=== PATIENT | female | born 2000 | race Caucasian/White ===

== ENCOUNTER → 2024-06-04 14:22 | Outpatient (REF) | payer BC, SELFPAY | LOC: WDC 14:22 | PROVIDERS: ATTENDING PHYSICIAN Family Medicine | DX: R92.8 Other abnormal and inconclusive findings on diagnostic imaging of breast (principal) | CPT/HCPCS: 76642 ==

== ENCOUNTER 2024-09-25 14:11 | Emergency (ER) | payer BC, SELFPAY ==
[2024-09-25 14:17] VITALS: BP 127/81
--- NOTE | 2024-09-25 14:40 | ED.GENMED ---
History of Present Illness
General
Chief Complaint: Musculo-Skeletal Complaint
Source: patient
Time Seen by Provider: 09/25/24 14:31
History of Present Illness
History of Present Illness:
23-year-old female with no significant past medical history presenting to the emergency department for evaluation after injuring her left ankle while playing basketball stating that a player fell into her left ankle causing her ankle to invert now
with pain and swelling along the lateral aspect. Patient notes previous ankle sprains in the past but no previous surgeries. No other injuries sustained.
Past History
Past History
ED Past Medical History: None
ED Past Surgical History: None
Social History
Tobacco: Non-smoker
Alcohol: Occasional
Drug: None
Personal: Single
Living: with roommate
Employment: Student
Review of Systems
Review of Systems
All Other Systems: ROS reviewed and negative except as documented in HPI and ROS
Phy Exam
Physical Exam
Physical Exam:
GENERAL: Alert , in no apparent distress
EYE: conjunctiva clear
Head: Normocephalic atraumatic
NECK: Supple,
ENT: mmm.
LUNGS: no acute respiratory distress
NEUROLOGICAL: Alert and oriented
SKIN: Warm and dry, skin intact.
MUSCULOSKELETAL: Left lower extremity: Moderate soft tissue swelling around the lateral malleolus and just distal to this with tenderness in this area. Remainder of extremity is without any focal tenderness to palpation. No tenderness at the base
of metatarsal or proximal tib-fib region. Easily palpable pedal and tibial pulses. Cap refill less than 2 seconds and sensation is grossly intact to light touch.
PSYCH: Normal and appropriate interaction.
Scores
Heart Failure Risk
Heart Failure Risk Score: Not Applicable
Heart Score for Chest Pain Patients
STEMI patient?: Not applicable
Withdrawal Assessment of Alcohol
Withdrawal Assessment Completed?: Not applicable
Course
Orders/Labs/Results
Orders:
Orders
09/25/24 14:21
CR Ankle - Left Min 3 Views Urgent
Comment:
Reason For Exam: rolled ankle
09/25/24 14:28
CR Foot - Left Min 3 Views Urgent
Comment:
Reason For Exam: pain, injury
09/25/24 14:39
Air Splint Left-Treatment ONCE
Crutches-Treatment ONCE
Vital Signs
Initial and Last Documented VS:
Initial Vital Signs
Temp Pulse Resp BP Pulse Ox
98.4 F 76 16 127/81 100
09/25/24 14:17 09/25/24 14:17 09/25/24 14:17 09/25/24 14:17 09/25/24 14:17
Last Documented Vital Signs
Temp Pulse Resp BP Pulse Ox
98.4 F 76 16 127/81 100
09/25/24 14:17 09/25/24 14:17 09/25/24 14:17 09/25/24 14:17 09/25/24 14:17
MDM/Problems Addressed
Differential Diagnosis Includes:
Sprain, fracture, contusion
MDM/Problems Addressed:
23-year-old female presenting to the ER for evaluation of left ankle pain following an injury while playing basketball. X-rays ordered from triage which do not show any fracture. Suspect sprain is most likely diagnosis. NSAIDs/Tylenol as needed
for pain, RICE recommendations discussed. Crutches and air splint provided. 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
*Radiology
Radiology exam reviewed: preliminary read by ED provider (No acute fracture)
*Pulse Oximetry
Patient hypoxic: no
*Critical Care Note
Total Time (30-74mins, 75-104mins- exclusive of procedures): Not Applicable
ED Attending Note
-
Portions of this chart may have been created with voice recognition software.� Occasional wrong word or��sound alike� substitutions may have occurred due to the inherent limitations of voice recognition software.
Discharge Plan
Departure
Patient Disposition: Home (Routine Discharge)
Date of Disposition: 09/25/24
Time of Disposition: 14:42
Patient with high blood pressure during this ER visit?: No
Discharge Problem:
Left ankle sprain
Instructions: Sprain (DC)
Referrals:
Louie Bishop MD [Active] - (Ortho)
Stand Alone Forms: Back to School
Interventions
Interventions:
*Risk Screen - Suicide Last Done: 09/25/24 14:17
*General Assessment Last Done: 09/25/24 14:17
*Neglect/Abuse Screening Last Done: 09/25/24 14:17
*ED COVID-19 Vaccine History Last Done: 09/25/24 14:17
Discharge Date and Time
Print Language: ARMENIAN
== END 2024-09-25 15:05 | disposition home or self-care (01) ==
LOC: EMR 14:11
PROVIDERS: EMERGENCY PHYSICIAN Emergency Medicine; FAMILY PHYSICIAN Family Medicine
DX: S93.402A Sprain of unspecified ligament of left ankle, initial encounter (principal); X50.1XXA Overexertion from prolonged static or awkward postures, initial encounter; Y93.67 Activity, basketball
CPT/HCPCS: 99283; 73610; 73630